=== PATIENT | male | born 1965 | race Caucasian/White ===

== ENCOUNTER → 2025-01-27 07:14 | Outpatient (CLI) | payer OTHER, SELFPAY ==
[2025-01-27 08:20] LABS: Hemoglobin A1C% w Est Avg Glu 5.6 % (4.0-6.0)
[2025-01-27 09:01] LABS: Cholesterol 200 mg/dL (140-199); HDL Cholesterol 60 mg/dL (40-60); LDL Cholesterol Calculated 123 mg/dL (<100); Triglycerides 87 mg/dL (35-150); Uric Acid 4.7 mg/dL (3.5-8.5)
== END ==
PROVIDERS: PCP Family Medicine; Referring Provider Family Medicine; Visit Provider Family Medicine
DX: G35 Multiple sclerosis (principal); Z68.38 Body mass index [BMI] 38.0-38.9, adult; Z13.220 Encounter for screening for lipoid disorders; Z13.1 Encounter for screening for diabetes mellitus; M10.9 Gout, unspecified
CPT/HCPCS: 36415; 80061; 83036; 84550